=== PATIENT | female | born 1970 | race Caucasian/White ===

== ENCOUNTER 2018-10-18 09:51 | Emergency (ER) | payer BC ==
[~2018-10-18] VITALS: Ht 167.6 cm; Wt 82.0 kg
[2018-10-18] MEDS ORDERED: IBUPROFEN 600MG TABLET PO ONE (10:30)
[2018-10-18 11:42] VITALS: BP 145/77
== END 2018-10-18 11:43 | disposition home or self-care (01) ==
LOC: ER 09:51
DX: S16.1XXA Strain of muscle, fascia and tendon at neck level, initial encounter (principal); V43.51XA Car driver injured in collision with sport utility vehicle in traffic accident, initial encounter; Y93.89 Activity, other specified; Y92.410 Unspecified street and highway as the place of occurrence of the external cause; R03.0 Elevated blood-pressure reading, without diagnosis of hypertension
CPT/HCPCS: 71045; 93005; 99283